=== PATIENT | female | born 1955 | race Caucasian/White ===

== ENCOUNTER 2022-03-21 20:24 | Emergency (ER) | payer OTHER ==
[~2022-03-21] VITALS: Ht 165.1 cm; Wt 59.0 kg
== END 2022-03-22 00:21 | disposition home or self-care (01) ==
LOC: EDBD 20:24 → ER 20:24
DX: S06.0X9A Concussion with loss of consciousness of unspecified duration, initial encounter (principal); S01.01XA Laceration without foreign body of scalp, initial encounter; M25.531 Pain in right wrist; R07.81 Pleurodynia; Z23 Encounter for immunization; W17.81XA Fall down embankment (hill), initial encounter
CPT/HCPCS: 12001; 70450; 71101; 73100; 90471; 90714; 96372; 99284-25; A9270; J1885